=== PATIENT | female | born 2005 | race African-American/Black ===

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

== ENCOUNTER 2023-02-02 19:46 | Emergency (ER) | payer MEDICAID ==
--- NOTE | 2023-02-02 20:18 | ED Integumentary General ---
General Chief Complaint: Skin/Wound Problems Stated Complaint: BUG BITES Nursing Triage Note: PT AMB TO FT1 WITH CC OF AREA OF CONCERN ON R RIBS, BILATE LEGS AND R ARM SINCE 01/27. PT STATES WENT TO [facility] ON 01/27 AND WAS CONCERNED SHE "CONTRACTED A DISEASE." PT REPORTS AREA OF CONCERN IS ITCHY. Source: patient History of Present Illness Date Seen by Provider: Feb 02, 2023 Time Seen by Provider: 20:15 Initial Comments PT ARRIVES VIA POV C/O ITCHY RED BUMPS SINCE FRIDAY, AFTER GOING TO [facility] THEY ARE BELOW HER RIGHT AXILLA AND RIGHT BREAST, AND ON HER RIGHT THIGH SHE HAS NOT SOUGHT CARE UNTIL TONIGHT ( FRIDAY NIGHT) THEY ARE NO DIFFERENT TONIGHT SHE HAS NOT TAKEN ANYTHING FOR THE ITCHING OR APPLIED ANY TOPICAL MEDICATIONS RECENTLY--SHE TRIED ALOE VERA A COUPLE OF TIMES, BUT NOT RECENTLY PCP: VIVIANGloria Allergies and Home Medications Allergies Coded Allergies: No Known Drug Allergies (Unverified , 12/01/14) Patient Home Medication List Home Medication List Reviewed: Yes Doxycycline Hyclate (Doxycycline Hyclate) 100 Mg Tablet, 100 MG PO BID Prescribed by: YANIRA MAZARIEGOS on 04/27/22 045 Duloxetine HCl (Duloxetine HCl) 30 Mg Capsule.dr, 30 MG PO, (Reported) Entered as Reported by: DORCAS TEJEDA on 07/14/192028 Hydrocortisone (Anti-Itch) 28 Gm Cream..g., 28 GM TP BID Prescribed by: FAYE MUKHERJEE on 05/05/21 114 Hydroxyzine HCl (Hydroxyzine HCl) 10 Mg Tablet, 10 MG PO, (Reported) Entered as Reported by: DORCAS TEJEDA on 07/14/19 2030 Hydroxyzine Pamoate (Hydroxyzine Pamoate) 50 Mg Capsule, 50 MG PO Q6H PRN for ANXIETY Prescribed by: YANIRA MAZARIEGOS on 05/26/222127 Metronidazole (Metronidazole) 500 Mg Tablet, 500 MG PO QID Prescribed by: YANIRA MAZARIEGOS on 04/27/22 045 Mupirocin Calcium (Mupirocin) 2 % Cream..g., 15 GM TP TID Prescribed by: Gurmeet Askew on 07/21/22 1221 Olanzapine (Olanzapine) 5 Mg Tablet, 5 MG PO, (Reported) Entered as Reported by: DORCAS TEJEDA on 07/14/192029 Ondansetron (Ondansetron Odt) 4 Mg Tab.rapdis, 4 MG PO Q6H PRN for NAUSEA/VOMITI NG Prescribed by: JANINE JOHNSON on 05/15/22 0041 Permethrin (Permethrin) 60 Gm Cream..g., 60 GM TP ONCE Prescribed by: FAYE MUKHERJEE on 05/05/21 1145 Review of Systems Review of Systems Constitutional: no symptoms reported EENTM: no symptoms reported Respiratory: no symptoms reported Cardiovascular: no symptoms reported Gastrointestinal: no symptoms reported Genitourinary: no symptoms reported Musculoskeletal: no symptoms reported Skin: see HPI Psychiatric/Neurological: No Symptoms Reported Endocrine: No Symptoms Reported Hematologic/Lymphatic: No Symptoms Reported Past Tivzzpp-Aubtrb-Krnzjg Hx Patient Social History Tobacco Use?: No Substance use?: No Alcohol Use?: No Pt feels they are or have been: No Immunizations Up To Date First/Initial COVID19 Vaccinat: YES Second COVID19 Vaccination Poli: YES Third COVID19 Vaccination Date: YES Seasonal Allergies Seasonal Allergies: No Past Medical History Surgeries: Yes Ear Surgery Respiratory: No Cardiac: No (NOTHING CONFIRMED BY PHYSICIAN) Neurological: No (NOTHING CONFIRMED BY PHYSICIAN) 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 Physical Exam Vital Signs Vital Signs - First Documented 02/02/23 19:51 Pulse 67 Resp 18 B/P (MAP) 118/66 (83) Pulse Ox 98 O2 Delivery Room Air Capillary Refill : Less Than 3 Seconds General Appearance: WD/WN, no apparent distress Cardiovascular: regular rate, rhythm Respiratory: chest non-tender, normal breath sounds Gastrointestinal: non tender Back: normal inspection Extremities: normal inspection Neurologic/Psychiatric: no motor/sensory deficits, alert, normal mood/affect, oriented x 3 Skin: normal color (PT IS DARK SKINNED), warm/dry, other (3 DISCRETE, SMALL ( 2-3 MM ) ERYTHEMATOUS PAPULES TO RIGHT LATERAL CHEST--BELOW BREAST AND AXILLA AREA. ALSO HAS 5-6 OF THESE SAME ERYTHEMATOUS PAPULES TO HER RIGHT ANTERIOR AND LATERAL THIGH. NONE ARE INFECTED, NONE ARE TENDER. NO DRAINAGE OR STREAKS. ) Progress/Results/Core Measures Results/Orders Vital Signs/I&O 02/02/23 02/02/23 19:51 20:20 Pulse 67 67 Resp 18 18 B/P (MAP) 118/66 (83) 118/66 Pulse Ox 98 98 O2 Delivery Room Air Room Air Blood Pressure Mean: 83 Progress Progress Note : Progress Note DISCUSSED ANTICIPATED COURSE, SYMPTOMATIC TREATMENT, MEDICATIONS, NEED FOR FOLLOW UP AND RETURN PRECAUTIONS REVIEWED PRIOR RECORDS--ER VISITS Departure Impression Primary Impression: Insect bite, multiple Disposition: 01 HOME, SELF-CARE Condition: Stable Departure-Patient Inst. Decision time for Depature: 20:17 Referrals: [facility] (PCP/Family) Primary Care Physician Patient Instructions: Insect Bites and Stings ED Add. Discharge Instructions: YOU MAY USE HYDROCORTISONE CREAM 3 TIMES A DAY TO AFFECTED AREAS YOU MAY TAKE BENADRYL OR CLARITIN FOR ITCHING FOLLOW UP WITH YOUR DR IF SYMPTOMS WORSEN All discharge instructions reviewed with patient and/or family. Voiced understanding. YANIRA MAZARIEGOS DO Feb 02, 2023 20:18
[2023-02-02 20:20] VITALS: BP 118/66
== END 2023-02-02 20:20 | disposition home or self-care (01) ==
LOC: EDUNIT# 19:46 → ER 19:47
DX: S20.361A Insect bite (nonvenomous) of right front wall of thorax, initial encounter (principal); S70.361A Insect bite (nonvenomous), right thigh, initial encounter; F17.200 Nicotine dependence, unspecified, uncomplicated; W57.XXXA Bitten or stung by nonvenomous insect and other nonvenomous arthropods, initial encounter
CPT/HCPCS: 99281

== ENCOUNTER 2023-02-16 01:41 | Emergency (ER) | payer MEDICAID ==
[~2023-02-16] VITALS: Ht 162.6 cm; Wt 62.1 kg
[2023-02-16 01:52] VITALS: BP 111/72
[2023-02-16] MEDS ORDERED: hydrOXYzine (VISTARIL/ATARAX) 25 MG capsule/tablet PO ONE (02:00)
[2023-02-16] MEDS ORDERED: HYDR28.480 TP (02:02)
[2023-02-16] MEDS ORDERED: HYDR-700 PO (02:02)
--- NOTE | 2023-02-16 02:02 | ED Integumentary General ---
General Chief Complaint: Allergic Reaction Stated Complaint: ITCHY ALL OVER Allergies and Home Medications Allergies Coded Allergies: No Known Drug Allergies (Unverified , 12/01/14) Patient Home Medication List Discontinued Medications Doxycycline Hyclate (Doxycycline Hyclate) 100 Mg Tablet, 100 MG PO BID Discontinued Reason: No Longer Taking Prescribed by: YANIRA MAZARIEGOS on 04/27/22456 Last Action: Discontinued Duloxetine HCl (Duloxetine HCl) 30 Mg Capsule.dr, 30 MG PO, (Reported) Discontinued Reason: No Longer Taking Entered as Reported by: DORCAS TEJEDA on 07/14/192028 Last Action: Discontinued Hydrocortisone (Anti-Itch) 28 Gm Cream..g., 28 GM TP BID Discontinued Reason: No Longer Taking Prescribed by: FAYE MUKHERJEE on 05/05/21 114 Last Action: Discontinued Hydroxyzine HCl (Hydroxyzine HCl) 10 Mg Tablet, 10 MG PO, (Reported) Discontinued Reason: No Longer Taking Entered as Reported by: DORCAS TEJEDA on 07/14/192029 Last Action: Discontinued Hydroxyzine Pamoate (Hydroxyzine Pamoate) 50 Mg Capsule, 50 MG PO Q6H PRN for ANXIETY Discontinued Reason: No Longer Taking Prescribed by: YANIRA MAZARIEGOS on 05/26/222127 Last Action: Discontinued Metronidazole (Metronidazole) 500 Mg Tablet, 500 MG PO QID Discontinued Reason: No Longer Taking Prescribed by: YANIRA MAZARIEGOS on 04/27/22456 Last Action: Discontinued Mupirocin Calcium (Mupirocin) 2 % Cream..g., 15 GM TP TID Discontinued Reason: No Longer Taking Prescribed by: Gurmeet Askew on 07/21/22 1221 Last Action: Discontinued Olanzapine (Olanzapine) 5 Mg Tablet, 5 MG PO, (Reported) Discontinued Reason: No Longer Taking Entered as Reported by: DORCAS TEJEDA on 07/14/192029 Last Action: Discontinued Ondansetron (Ondansetron Odt) 4 Mg Tab.rapdis, 4 MG PO Q6H PRN for NAUSEA/VOMITING Discontinued Reason: No Longer Taking Prescribed by: JANINE JOHNSON on 05/15/22 0041 Last Action: Discontinued Permethrin (Permethrin) 60 Gm Cream..g., 60 GM TP ONCE Discontinued Reason: No Longer Taking Prescribed by: FAYE MUKHERJEE on 05/05/21 1145 Last Action: Discontinued Past Xoctrku-Mtmvlo-Adrdsp Hx Patient Social History Tobacco Use?: No Substance use?: No Alcohol Use?: No Pt feels they are or have been: No Immunizations Up To Date First/Initial COVID19 Vaccinat: YES Second COVID19 Vaccination Poli: YES Third COVID19 Vaccination Date: YES Seasonal Allergies Seasonal Allergies: No Past Medical History Surgery/Hospitalization HX: DENIES Surgeries: Yes Ear Surgery Respiratory: No Cardiac: No (NOTHING CONFIRMED BY PHYSICIAN) Neurological: No (NOTHING CONFIRMED BY PHYSICIAN) Reproductive 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 Physical Exam Vital Signs Capillary Refill : Departure Impression Primary Impression: ITCHING SENSATION Disposition: 01 HOME, SELF-CARE Condition: Stable Departure-Patient Inst. Decision time for Depature: 02:00 [facility]) Primary Care Physician Patient Instructions: Itchy Skin Add. Discharge Instructions: FOLLOW UP WITH [facility] IF YOUR SYMPTOMS PERSIST All discharge instructions reviewed with patient and/or family. Voiced understanding. Scripts Hydrocortisone/Aloe Vera (Hydrocortisone Plus 1% Cream) 1 % Cream..g. 28.4 GM TP TID, #1 EA Prov: YANIRA MAZARIEGOS DO 02/16/23 Hydroxyzine HCl (Hydroxyzine HCl) 25 Mg Tablet 50 MG PO Q6 for Itching, #10 TAB Prov: YANIRA MAZARIEGOS DO 02/16/23 YANIRA MAZARIEGOS DO Feb 16, 2023 02:02
== END 2023-02-16 02:04 | disposition home or self-care (01) ==
LOC: EDUNIT# 01:41 → ER 01:46
DX: L29.9 Pruritus, unspecified (principal); F17.200 Nicotine dependence, unspecified, uncomplicated
CPT/HCPCS: 99283